=== PATIENT | male | born 1945 | race Caucasian/White ===

== ENCOUNTER 2016-10-21 05:16 | Inpatient (IN) | payer OTHER, BC ==
[2016-09-22 10:26] VITALS: BMI 23.0
--- NOTE | 2016-09-22 11:01 | PAT Medication Instructions ---
Service Date Sep 22, 2016. Current Home Medication List Aspirin (Aspirin Ec), 81 MG PO QAM Atorvastatin (Lipitor), 20 MG PO HS Chlorthalidone (Hygroton), 25 MG PO QAM Cholecalciferol (Vitamin D3), 1 TAB PO QAM Lisinopril (Zestril), 40 MG PO QAM Metformin Hcl (Glucophage), 500 MG PO BID Medication Instructions For Your Scheduled Surgery - Hold the following medications 48 hours prior to surgery: Metformin Hcl (Glucophage), 500 MG PO BID - Hold the following medications the morning of surgery: Chlorthalidone (Hygroton), 25 MG PO QAM Lisinopril (Zestril), 40 MG PO QAM Cholecalciferol (Vitamin D3), 1 TAB PO QAM - Take the following medications the morning of surgery with a sip of water: Aspirin (Aspirin Ec), 81 MG PO QAM - Take the following medications as scheduled the night before surgery: Atorvastatin (Lipitor), 20 MG PO HS If you have any questions please call us at [phone] or [phone] ( [facility]aceli) or [phone]
--- NOTE | 2016-09-22 11:34 | DIAGNOSTIC IMAGING REPORT ---
CHEST PREADMISSION(PA/LAT) CLINICAL HISTORY: PAT COMPARISON STUDY: No previous studies for comparison. FINDINGS: The bones soft tissues and hemidiaphragms are normal. The cardiomediastinal silhouette is normal. The lungs are clear. The pulmonary vasculature is normal. IMPRESSION: Negative chest. Electronically signed by: Jj Toledo M.D. 09/22/2016 11:32 AM
[2016-09-22 12:01] LABS: BASO % 0.5 %; BASO ABS # 0.03 K/uL (0-0.2); COMPLETE YES; HEMATOCRIT 36.7 % (42-52); IG% 0.3 %; LYMPH ABS # 1.18 K/uL (1.2-3.4); MEAN CELL VOLUME 90.6 fL (80-100); MEAN CORPUSCULAR HEMOGLOBIN 31.4 pg (25-34); MEAN CORPUSCULAR HGB CONC 34.6 g/dl (32-36); MEAN PLATELET VOLUME 9.9 fL (7.4-10.4); MONO % 4.4 %; NEUT % 72.8 %; PLATELET COUNT 170 K/uL (130-400); RED BLOOD COUNT 4.05 M/uL (4.7-6.1); WHITE BLOOD COUNT 6.54 K/uL (4.8-10.8)
[2016-09-22 12:09] LABS: URINE APPEARANCE CLEAR (CLEAR); URINE BILIRUBIN NEG (NEG); URINE COLOR YELLOW; URINE EPITHELIAL CELL AUTO 0-5 /lpf (0-5); URINE NITRITE NEG (NEG); URINE PH 6.5 (4.5-7.5); UROBILINOGEN NEG (NEG)
[2016-09-22 12:10] LABS: PROTHROMBIN TIME (PATIENT) 11.1 SECONDS (9.0-12.0)
[2016-09-22 12:13] LABS: MANUAL MICROSCOPIC REQUIRED? NO; REVIEW REQ? NO
[2016-09-22 12:29] LABS: BUN/CREATININE RATIO 24.5 (10-20); CALCIUM 9.7 mg/dl (8.5-10.1); CREATININE 1.3 mg/dl (0.60-1.40); POTASSIUM 4.6 mmol/L (3.5-5.1)
[2016-09-22 12:44] LABS: ESTIMATED AVERAGE GLUCOSE 146 mg/dl; HA1C FLAG Normal (Normal)
--- NOTE | 2016-10-20 09:16 | HISTORY & PHYSICAL EXAMINATION ---
DATE OF ADMISSION: 10/21/2016 CHIEF COMPLAINT: Right knee pain. HISTORY OF PRESENT ILLNESS: The patient is a 71-year-old gentleman with known osteoarthritis about his right knee. He has had a previous corticosteroid injection with minimal relief. He continues to have pain and disability with activities of daily living. He has pain with prolonged weightbearing and standing activities. He has difficulty with any kneeling, bending, or squatting activities. He now desires to proceed with right total knee arthroplasty. PAST MEDICAL HISTORY: Type 2 diabetes, anemia, stage III chronic kidney disease, BPH, diabetic neuropathy, hyperlipidemia, hypertension. PAST SURGICAL HISTORY: Cataract surgery, cholecystectomy, hemorrhoidectomy, knee arthroscopy. MEDICATIONS: Chlorthalidone 25 mg daily, lisinopril 40 mg daily, Atorvastatin calcium 20 mg at bedtime, aspirin 81 mg daily, Voltaren gel as needed, metformin HCL ER 500 mg twice daily. ALLERGIES: No known drug allergies. SOCIAL HISTORY AND REVIEW OF SYSTEMS: Noncontributory. PHYSICAL EXAMINATION: GENERAL: Well-nourished, well-developed elderly male who appears stated age. HEENT: Normocephalic, atraumatic, extraocular movements intact, oropharynx pink and moist. NECK: Supple without adenopathy. LUNGS: Clear to auscultation bilaterally. HEART: Regular rate and rhythm. ABDOMEN: Soft, nontender, nondistended. EXTREMITIES: The upper extremity within normal limits. The right knee has a neutral alignment. He complains of both medial and lateral joint line pain. He has mild crepitus with range of motion. X-RAYS: X-rays were reviewed. He has moderate to severe tricompartmental DJD with equal narrowing of the medial and lateral joint lines. There is evidence of subchondral sclerosis. ASSESSMENT: Right knee degenerative joint disease. PLAN: Risks versus benefits were discussed. Consent was obtained. The patient's primary care physician is Dr. Soto. Will proceed with right total knee arthroplasty upon preoperative workup and medical clearance. KASSANDRA
[2016-10-21] VITALS (10 sets, daily range): BP systolic 120–159; BP diastolic 63–89; PULSE 58–81; TEMP 36.3–36.9; O2SAT 90–99; Ht 185.4 cm; Wt 81.9 kg
[~2016-10-21] VITALS: Ht 185.4 cm; Wt 81.9 kg
[~2016-10-21 05:16] MED LIST: ASPI81TA28 PO; ATOR-22 PO; CHOL20007 PO; GLC/500 PO; HYG/25 PO; LISI-794 PO
[2016-10-21] MEDS ORDERED: GABAPENTIN 300 MG CAP PO SCH (06:00)
[2016-10-21] MEDS ORDERED: CEFAZOLIN 2000 MG/60 ML D5W 60 ML IV SCH (06:00)
[2016-10-21] MEDS ORDERED: DEXAMETHASONE 4 MG TAB PO SCH (06:00)
[2016-10-21] MEDS ORDERED: ACETAMINOPHEN 500 MG TAB PO SCH (06:00)
[2016-10-21] MEDS ORDERED: LACTATED RINGER'S 1000ML IV SCH (06:00)
[2016-10-21] MEDS ORDERED: LACTATED RINGER'S 1000ML 1,000 ML IV SCH (06:00)
[2016-10-21] MEDS ORDERED: CeleBREX 200 MG CAP PO SCH (06:00)
[2016-10-21] MEDS ORDERED: METOCLOPRAMIDE HCL 10 MG TAB PO SCH (06:00)
[2016-10-21] MEDS ORDERED: ROPIVACAINE 5MG/ML 30 ML 150 MG, BUPIVACAINE/EPINEPHR 0.5% MPF 30 ML, KETOROLAC TROMETH... INFIL SCH ×7 (06:00)
[2016-10-21] MEDS ORDERED: FAMOTIDINE 20 MG TAB PO SCH (06:00)
[2016-10-21] MEDS ORDERED: OXYCODONE HCL 10 MG TABCR (OXYCONTIN) PO SCH (06:00)
[2016-10-21] MEDS: TRANEXAMIC ACID INJ 1,000 MG in SODIUM CHLORIDE 0.9% 100ML 100 ML IV SCH ×2 (06:18→06:30)
[2016-10-21] MEDS ORDERED: FENTANYL CITRATE INJ 50 MCG/1 ML 2 ML VIAL ONE (06:30)
[2016-10-21] MEDS ORDERED: ONDANSETRON INJ 2 MG/ML 2 ML VIAL ONE (06:30)
[2016-10-21] MEDS ORDERED: LIDOCAINE HCL 2% 2 ML VIAL (20MG/ML) ONE (06:30)
[2016-10-21] MEDS ORDERED: DEXAMETHASONE SOD INJ 4 MG/ML VIAL ONE (06:30)
[2016-10-21] MEDS ORDERED: MIDAZOLAM HCL 1 MG/ML 2ML VIAL ONE ×2 (06:30→06:59)
[2016-10-21] MEDS ORDERED: BUPIVACAINE 0.5 % 5 MG/1 ML PF 10ML VIAL ONE (06:30)
[2016-10-21] MEDS ORDERED: PROPOFOL IV EMULSION 10 MG/ML 20 ML VIAL IV ONE (06:30)
[2016-10-21] MEDS ORDERED: ORTHO JOINT ANESTHETIC ONE (06:32)
--- NOTE | 2016-10-21 06:48 | History & Physical Bridge Note ---
H&P Re-Evaluation Bridge Note: I have examined the patient, reviewed the History & Physical and in the interval since the performance of the History & Physical I have noted the following changes of clinical significance: No changes noted
[2016-10-21] MEDS ORDERED: EpHEDrine SULFATE INJ 50 MG/ML AMP IV PRN (07:00)
[2016-10-21] MEDS ORDERED: FENTANYL CITRATE INJ 50 MCG/1 ML 2 ML VIAL IV PRN (07:00)
[2016-10-21] MEDS ORDERED: ONDANSETRON INJ 2 MG/ML 2 ML VIAL IV PRN ×2 (07:00→08:30)
[2016-10-21] MEDS ORDERED: ATROPINE SULFATE 0.1 MG/ML 5ML SYR IV PRN (07:00)
--- NOTE | 2016-10-21 07:42 | [facility] Post Operative Brief Note ---
Immediate Operative Summary Operative Date Oct 21, 2016. Pre-Operative Diagnosis Right Knee Degenerative Joint Disease Post-Operative Diagnosis Right Knee Degenerative Joint Disease Procedure(s) Performed Right Total Knee Arthroplasty Surgeon Dr. Winkler Tracing Lathe Set Up Operator Surgeon(s) ALEXANDRO Mcintyre Estimated Blood Loss 20 ml Findings severe OA Specimens A. Right Knee Bone and Tissue Disposition Recovery Room / PACU
[2016-10-21] MEDS ORDERED: BACITRACIN 50000 UNIT VIAL IR ONE (07:48)
[2016-10-21] MEDS ORDERED: POVIDONE-IODINE OP SOLN 30 ML BTL TOP ONE (07:48)
--- NOTE | 2016-10-21 07:52 | OPERATIVE REPORT ---
DATE OF OPERATION: 10/21/2016 PREOPERATIVE DIAGNOSIS: Osteoarthritis right knee. POSTOPERATIVE DIAGNOSIS: Osteoarthritis right knee. PROCEDURE: Right total knee arthroplasty. SURGEON: Dr. Winkler. CERTIFIED CREDIT COUNSELOR: David Farris PA-C. ANESTHESIA: Spinal. COMPLICATIONS: None. OPERATION AND FINDINGS: Following induction of spinal anesthesia, the patient's right leg was prepped and draped in the usual sterile manner. Limb was exsanguinated with an Esmarch bandage and tourniquet was inflated to 350 mmHg. A longitudinal incision was made anteriorly. Subcutaneous tissue was sharply dissected. Electrocautery was used for hemostasis. Prepatellar bursa was incised and median parapatellar incision was performed. Patella was everted and the knee was flexed. Fat pad was removed to aid in visualization and the anterior and posterior cruciate ligaments were removed. The medial face of the tibia was cleared of soft tissue first with a Bovie and a Marrufo elevator. This tissue was retracted posteriorly using a blunt Hohmann. A Chanel retractor was used to expose the synovium above on the anterior aspect of the femur and this was removed down to bone. The PSI guide was placed on the distal femur and two pins were placed anteriorly and kept in position and two additional pins were placed distally and removed. The distal femoral cutting block was placed in position and the distal femoral cut was used in the +0 setting. Next, the cutting block was removed and the size 5 block was placed in the distal end of the femur. Care was taken to ensure appropriate external rotation and feeler gauge was used to ensure no notching would occur. The femoral block was centered on the distal femur and in the medial and lateral direction and was fixed using two bone screws. The gold pins were then removed. The oscillating saw was used to create the bone cuts and the distal femoral cutting block was removed and the reciprocating saw was used to further trim the femoral cuts as well as a deep in the area for the trochlear groove. Next, posterior condyle remnants were removed. Following this, a meniscal clamp and knife were utilized to remove the anterior portion of both medial and lateral meniscus. The proximal tibia PSI guide was placed into position and the proximal tibial cutting guide was screwed into position. The extra medullary alignment guide was utilized to ensure appropriate alignment. The proximal tibia was cut and the proximal tibial cutting block was removed and this bone fragment was removed. The appropriate guide was used to perform the notch cut on the distal femur and a lamina glue spreader and a cochlear knife were utilized to finish both medial and lateral meniscectomies to remove any remnants of the posterior or anterior cruciate ligaments. Following this, the distal femoral component was impacted into position and blunt Gretta was used to sublux the tibia anteriorly. The proximal tibia was sized and a size 5 tibial tray was chosen as the size to be used. This was put into position and appropriate external rotation and a double check with extramedullary alignment guide was performed. The canal for the tibial stem was prepared first with a 17 mm drill and then the punch and a mallet and the trial tibial poly was placed. A size 11 was chosen the size to be used. It was brought to extension and the patella was prepared with the patellar reamer. A size 39 component was chosen the size to be used. The trial component was placed and knee was taken through a full range of motion and there was found to be no lateral subluxation of the tibia. No lateral release was required. The trials were all removed. The final components were obtained and assembled. Cement was mixed. The knee was thoroughly irrigated and the ortho mix was injected about the knee joint. The final components were cemented into position. After thoroughly suctioning and drying the bone ends, all excess cement was removed. The knee was held in extension while the cement hardened. The wound was irrigated and closed over a Hemovac drain. #1 Vicryl was used to close the extensor mechanism. Subcutaneous tissues closed using 0 Dexon. Skin was closed with willard. Sterile dressing of Adaptic, 4 x 4's, sterile Webril, and Neri was applied. The patient tolerated the procedure well. Recovery room stable. Due to the complex nature of the procedure, the entire surgery was performed with the operational assistance of David Farris PA-C. The assistant professor of sociology, under direct supervision, was involved in the actual performance of all aspects of the surgical procedure including hemostasis, tissue retraction and incision, instrument management, patient positioning, and wound closure. I attest to the content of the Intraoperative Record and any orders documented therein. Any exceptio ns are noted below.
[2016-10-21] MEDS ORDERED: OXYCODONE HCL IR 5 MG TAB (IMMEDIATE RELEASE) PO PRN (08:30)
[2016-10-21] MEDS ORDERED: ALUMINUM/MAGNESIUM/SIMETH (MAALOX MAX) 30 ML UDC PO PRN (08:30)
[2016-10-21] MEDS ORDERED: ZOLPIDEM TARTRATE 5 MG TAB PO PRN (08:30)
[2016-10-21] MEDS ORDERED: TAMSULOSIN HCL 0.4 MG CAP PO PRN (08:30)
[2016-10-21] MEDS ORDERED: MoRPHine SULFATE 2 MG/ML CARP IV PRN (08:30)
[2016-10-21] MEDS ORDERED: METOCLOPRAMIDE HCL INJ 5 MG/ML 2 ML VIAL IV PRN (08:30)
[2016-10-21] MEDS ORDERED: MAGNESIUM HYDROXIDE SUSP 30 ML UDC PO PRN (08:30)
[2016-10-21] MEDS ORDERED: PHARMACY GLYCEMIC MGMT CONSULT PRN (08:33)
--- NOTE | 2016-10-21 08:47 | DIAGNOSTIC IMAGING REPORT ---
TWO VIEWS RIGHT KNEE CLINICAL HISTORY: Postoperative examination. FINDINGS: AP and crosstable lateral portable views of the right knee are obtained. A right knee arthroplasty is in near anatomic alignment. There has been undersurface remodeling of the patella. No acute fracture is seen. There are expected postoperative changes around the knee including skin clips, a surgical drain, soft tissue edema, and subcutaneous gas. IMPRESSION: Expected postoperative changes status post right knee arthroplasty. No acute fracture is seen. Electronically signed by: Phillip Fung M.D. 10/21/2016 8:45 AM Dictated Date/Time: 10/21/2016 8:44 AM
[2016-10-21] MEDS ORDERED: MoRPHine SULFATE 10 MG/ML CARP/VIAL IV PRN (09:45)
[2016-10-21] MEDS ORDERED: MoRPHine SULFATE 4 MG/ML 1 ML CARP\\VIAL IV PRN (09:45)
[2016-10-21] MEDS: SODIUM CHLORIDE 0.9% 1000ML 1,000 ML IV SCH ×2 (09:57→18:18)
[2016-10-21] MEDS ORDERED: DEXTROSE 50% 50 ML SYR IV PRN (10:00)
[2016-10-21] MEDS ORDERED: GLUCOSE 40% GEL 15 GM TUBE PO PRN (10:00)
[2016-10-21] MEDS ORDERED: GLUCOSE 10 TABS/TUBE PO PRN (10:00)
[2016-10-21] MEDS ORDERED: GLUCAGON FOR INJ 1 MG VIAL SQ PRN (10:00)
[2016-10-21] MEDS: KETOROLAC TROMETHAMINE 15 MG/ML VIAL IV. SCH ×3 (10:08→22:02)
[2016-10-21] MEDS: DOCUSATE SODIUM 100 MG CAP PO SCH ×2 (10:18→20:47)
[2016-10-21] MEDS: MULTIVITAMIN TAB PO SCH (10:18)
[2016-10-21] MEDS: PANTOprazole SOD 40 MG TAB PO SCH (10:19)
[2016-10-21] MEDS: CHLORTHALIDONE 25 MG TAB PO SCH (10:19)
[2016-10-21] MEDS: LISINOPRIL 40 MG TAB PO SCH (10:19)
--- NOTE | 2016-10-21 10:37 | Anesthesiology Progress Note ---
Anesthesia Post Op Note Date & Time Oct 21, 2016 at 10:37 Vital Signs Pain Intensity: 0 Vital Signs Past 12 Hours Date Time Temp Pulse Resp B/P Pulse Ox O2 Delivery O2 Flow Rate FiO2 10/21/16 10:03 36.4 67 16 134/71 97 2.0 10/21/16 09:35 36.5 66 12 131/70 97 Room Air 10/21/16 09:10 98 Nasal Cannula 2.0 10/21/16 09:03 36.3 69 18 120/65 98 Nasal Cannula 2.0 10/21/16 08:53 125/58 10/21/16 08:52 62 16 10/21/16 08:52 62 16 99 10/21/16 08:48 122/64 10/21/16 08:47 67 16 10/21/16 08:47 71 16 99 10/21/16 08:44 36.4 10/21/16 08:43 123/58 10/21/16 08:42 60 16 99 10/21/16 08:42 60 16 10/21/16 08:41 60 16 99 10/21/16 08:41 60 16 10/21/16 08:38 123/64 10/21/16 08:36 65 16 10/21/16 08:36 68 16 99 10/21/16 08:33 123/60 10/21/16 08:31 68 18 10/21/16 08:31 67 18 99 10/21/16 08:28 135/63 10/21/16 08:26 65 16 10/21/16 08:26 62 16 99 10/21/16 08:23 128/59 10/21/16 08:21 63 11 97 10/21/16 08:21 63 11 10/21/16 08:18 123/59 10/21/16 08:16 71 14 10/21/16 08:16 72 14 98 10/21/16 08:16 36.1 65 11 120/55 99 Nasal Cannula 2 10/21/16 05:40 36.9 81 18 159/89 Room Air 96 Notes Mental Status: alert / awake / arousable, participated in evaluation Pt Amnestic to Procedure: Yes Nausea / Vomiting: adequately controlled Pain: adequately controlled Airway Patency, RR, SpO2: stable & adequate BP & HR: stable & adequate Hydration State: stable & adequate Neuraxial Anesthesia: was administered, sensory block is resolving Anesthetic Complications: no major complications apparent
[2016-10-21] MEDS: FERROUS GLUCONATE 324 MG TAB PO SCH ×2 (13:10→18:17)
[2016-10-21] MEDS: INSULIN ASPART 100 UNITS/ML 3 ML PEN SC SCH ×3 (13:29→20:45)
[2016-10-21] MEDS: ACETAMINOPHEN 500 MG TAB PO SCH ×2 (13:40→22:02)
[2016-10-21] MEDS: CEFAZOLIN IV 2,000 MG in DEXTROSE 5% 50ML 50 ML IV SCH ×2 (13:41→20:49)
--- NOTE | 2016-10-21 14:36 | Pharmacy Progress Note ---
Glycemic Control Intl Consult Date of Service Oct 21, 2016. Scope Glycemic Pharmacist consulted by MARGOTH Ruiz on 10/21/16 for glycemic control and to write orders per [facility] inpatient glycemic control protocol. Objective Weight (Kilograms): 81.900 Accuchecks BSG (last 24hrs): Test 10/21/16 05:45 10/21/16 08:19 10/21/16 11:56 Bedside Glucose 141 mg/dl (70-99) 145 mg/dl (70-99) 318 mg/dl (70-99) HbA1c Item Value Date Time Hemoglobin A1c 6.7 % H 09/22/16 1107 Estimated Average Glucose 146 mg/dl 09/22/16 1107 Recent Pertinent Medications Outpatient Anti-diabetic Regimen: * Metformin 500mg PO BID * A1c = 6.7 % 09/22/16 Risk Factors for Insulin Resistance: * Steroids: DXM 8mg PO x1 dose pre-op this morning PLUS ortho mix w/ DXM, DXM 10mg IV x1 dose tomorrow morning. * Infection: Ancef libertad-op * IVF: NSS @ 100mL/hr * Recent Surgery: POD #0 s/p right TKA * Diet: Type 2 diabetic diet Assessment & Plan ASSESSMENT: * ADA & AACE recommend a goal blood sugar range 140-180 mg/dl for the majority of critically ill & non-critically ill patients. However, more stringent targets may be selected in individual cases. * Patient is a 71yo diabetic male admitted for R TKA and receiving a couple of doses of steroids perioperatively. * Recent A1c indicates that outpatient glycemic control may be slightly suboptimal. PLAN FOR INPATIENT GLYCEMIC CONTROL: * Holding outpatient oral diabetes medications * No basal insulin at this time, but will consider adding some if hyperglycemia persists after discontinuation of steroids. * Correctional Insulin with NOVOLOG per scale ACHS plus 0200 * Goal Range: Low 140 mg/dL - High 180 mg/dL * Correction Factor: 30 mg/dL/unit * Nutritional / Prandial insulin per carb ratio of 1 unit per 10 grams CHO consumed * Please note that the plan above was derived based on current level of insulin resistance and hospital stress. These recommendations are appropriate for inpatient admission only. Plan of care upon discharge will need to be reassessed to avoid potential outpatient hypo/hyperglycemia. Thank you.
[2016-10-21] MEDS: ASPIRIN 81 MG ECTAB PO SCH (20:47)
[2016-10-21] MEDS: ATORVASTATIN 20 MG TAB PO SCH (20:47)
[2016-10-21] MEDS: OXYCODONE HCL 10 MG TABCR (OXYCONTIN) PO SCH (20:48)
[2016-10-22] MEDS: INSULIN ASPART 100 UNITS/ML 3 ML PEN SC SCH ×5 (02:13→21:16)
[2016-10-22 03:40] VITALS: BP 140/68; PULSE 72; TEMP 36.7; O2SAT 95
[2016-10-22] MEDS: KETOROLAC TROMETHAMINE 15 MG/ML VIAL IV. SCH (04:03)
[2016-10-22] MEDS: SODIUM CHLORIDE 0.9% 1000ML 1,000 ML IV SCH (04:05)
[2016-10-22] MEDS: ACETAMINOPHEN 500 MG TAB PO SCH ×3 (06:08→21:13)
[2016-10-22 07:30] LABS: HEMATOCRIT 27.1 % (42-52); MEAN CELL VOLUME 89.1 fL (80-100); MEAN CORPUSCULAR HEMOGLOBIN 30.9 pg (25-34); MEAN CORPUSCULAR HGB CONC 34.7 g/dl (32-36); MEAN PLATELET VOLUME 10.1 fL (7.4-10.4); PLATELET COUNT 134 K/uL (130-400); RED BLOOD COUNT 3.04 M/uL (4.7-6.1); WHITE BLOOD COUNT 10.51 K/uL (4.8-10.8)
[2016-10-22] MEDS ORDERED: DEXAMETHASONE INJ 10 MG in SYRINGE 0 ML IV SCH (07:30)
--- NOTE | 2016-10-22 07:37 | Anesthesiology Progress Note ---
Anesthesia Post Op Note Date & Time Oct 22, 2016 at 07:37 Vital Signs Pain Intensity: 0.0 Vital Signs Past 12 Hours Date Time Temp Pulse Resp B/P Pulse Ox O2 Delivery O2 Flow Rate FiO2 10/22/16 03:40 36.7 72 16 140/68 95 Room Air 10/21/16 23:27 36.5 69 18 135/63 97 Room Air 10/21/16 20:22 36.7 70 18 138/64 95 Room Air 10/21/16 20:00 Room Air 97 Notes Mental Status: alert / awake / arousable, participated in evaluation Pt Amnestic to Procedure: Yes Nausea / Vomiting: adequately controlled Pain: adequately controlled Airway Patency, RR, SpO2: stable & adequate BP & HR: stable & adequate Hydration State: stable & adequate Neuraxial Anesthesia: was administered, sensory block resolved Anesthetic Complications: no major complications apparent
--- NOTE | 2016-10-22 07:51 | Orthopedic Progress Note ---
Orthopedic Progress Note Date of Service Oct 22, 2016. Subjective Post OP Day: 1 Reports: feeling well Objective N/V intact, dressing C/D/I (Hemovac in place), toes mobile Date Time Temp Pulse Resp B/P Pulse Ox O2 Delivery O2 Flow Rate FiO2 10/22/16 03:40 36.7 72 16 140/68 95 Room Air 10/21/16 23:27 36.5 69 18 135/63 97 Room Air 10/21/16 20:22 36.7 70 18 138/64 95 Room Air 10/21/16 20:00 Room Air 97 10/21/16 16:00 96 Nasal Cannula 2.0 10/21/16 15:44 36.8 58 18 148/70 90 Nasal Cannula 2.0 10/21/16 12:05 36.4 65 16 141/69 99 2.0 10/21/16 11:04 70 16 129/69 98 2.0 10/21/16 10:03 36.4 67 16 134/71 97 2.0 10/21/16 09:40 Room Air 10/21/16 09:35 36.5 66 12 131/70 97 Room Air 10/21/16 09:10 98 Nasal Cannula 2.0 10/21/16 09:03 36.3 69 18 120/65 98 Nasal Cannula 2.0 10/21/16 08:53 125/58 10/21/16 08:52 62 16 10/21/16 08:52 62 16 99 10/21/16 08:48 122/64 10/21/16 08:47 67 16 10/21/16 08:47 71 16 99 10/21/16 08:44 36.4 10/21/16 08:43 123/58 10/21/16 08:42 60 16 99 10/21/16 08:42 60 16 10/21/16 08:41 60 16 99 10/21/16 08:41 60 16 10/21/16 08:38 123/64 10/21/16 08:36 65 16 10/21/16 08:36 68 16 99 10/21/16 08:33 123/60 10/21/16 08:31 68 18 10/21/16 08:31 67 18 99 10/21/16 08:28 135/63 10/21/16 08:26 65 16 10/21/16 08:26 62 16 99 10/21/16 08:23 128/59 10/21/16 08:21 63 11 97 10/21/16 08:21 63 11 10/21/16 08:18 123/59 10/21/16 08:16 71 14 10/21/16 08:16 72 14 98 10/21/16 08:16 36.1 65 11 120/55 99 Nasal Cannula 2 Laboratory Results 24 Hours: Test 10/22/16 06:40 Hematocrit 27.1 % Hemoglobin 9.4 g/dL Assessment & Plan Assessment: 71 yo male stable POD #1 s/p right TKA Plan: 1. Med management 2. DVT prophylaxis- ASA, TEDs, SCDs 3. PT/OT 4. D/C planning- home w/ OPPT
--- NOTE | 2016-10-22 07:53 | Discharge Instructions ---
Discharge Instructions Admission Reason for Admission: Osteoarthritis, Right Knee Discharge Discharge Diagnosis / Problem: Right knee arthritis Discharge Goals Goal(s): Decrease discomfort, Improve function Activity Recommendations Activity Limitations: as noted below Weightbearing Status: Right weightbearing (as tolerated) . Instructions / Follow-Up Instructions / Follow-Up ACTIVITY RECOMMENDATIONS: SELF CARE INSTRUCTIONS AFTER TOTAL KNEE REPLACEMENT A. You may need to continue a physical therapy program after discharge from the hospital. There are several options available to you. Your doctor will assist you in selecting the best one for you. 1. An out-patient facility 2 to 3 times a week for therapy or home therapy. 2. Continue working on all exercises taught to you in the hospital. Your goals should be to increase bending of your knee to 90 degrees and beyond and to fully straighten your knee. B. You may progress at your own pace from walking with a walker or crutches to a cane; then to no assistive devices. C. Make walking a part of your daily routine. Be up as much as comfortable with rest periods throughout the day. Rest with leg elevation is very important. Use the ice wrap frequently for the first 3-4 weeks. D. There are no restrictions on activities. You may ride in a car, shop, participate in subsorter and all social activities. E. Wear the long elastic stockings (JAIRO hose) 20 hours a day for 2 weeks after surgery. They can be removed several times a day for laundering and for a bath. F. You may shower, no tub baths until cleared by your doctor. SPECIAL CARE INSTRUCTIONS: VERY IMPORTANT TO READ AND REVIEW A. There are a few signs you need to watch for after you are home. Call [facility] if you notice any of the followin. Increased severe knee pain. Some pain is expected especially when you exercise. 2. Increased swelling in your leg or knee; pain or swelling of the calf muscle in either lower leg. 3. Any fluid drainage from the incision. 4. Shortness of breath or chest pain. B. Please call [facility] at if you have any concerns or questions about your operation or recovery. The doctor or his nurse will return your call promptly. C. You must take antibiotics before dental work, bladder, bowel or other surgery. Your doctor will provide you with a permanent care to carry describing this precaution. IMPORTANT: * REMEMBER TO TAKE ASPIRIN, 81 MG, TWICE DAILY FOR 4 WEEKS UNLESS OTHERWISE DIRECTED. THIS IS YOUR BLOOD THINNER. * HIGH RISK PATIENTS MAY BE PRESCRIBED A STRONGER BLOOD THINNER. THIS WILL BE PROVIDED AT DISCHARGE. * CALL IF INCREASED PAIN, REDNESS, DRAINAGE OR FEVER GREATER THAT 101. * WEAR JAIRO HOSE 20 HOURS PER DAY FOR 2 WEEKS. Silverlon- This is a large adhesive bandage that contains silver ions. This helps your incision heal by fighting off bacteria and protecting it from the outside environment. You are permitted to shower with this dressing. This will remain on your incision for 7 days and then should be removed. Some visible blood or drainage through the dressing window is normal. If there is significant drainage or leaking noted before the 7 days notify your doctor's office immediately. Once removed, keep incision clean and dry. If there is any drainage or redness noted, please call your surgeon. FOLLOW UP VISIT: If appointment is not already scheduled: Please call [facility] to make a follow-up appointment for 2 weeks after your surgery at . Current Hospital Diet Patient's current hospital diet: Diabetes Type 2 Diet Discharge Diet Recommended Diet: Regular Diet Procedures Procedures Performed: Right Total Knee Arthroplasty Pending Studies Studies pending at discharge: no Laboratory Results Hemoglobin A1c Test 09/22/16 11:07 Range/Units Estimated Average Glucose 146 mg/dl Hemoglobin A1c 6.7 H 4.5-5.6 % Medical Emergencies . Who to Call and When: Medical Emergencies: If at any time you feel your situation is an emergency, please call 911 immediately. . Non-Emergent Contact Non-Emergency issues call your: Surgeon Call Non-Emergent contact if: temperature is above 101.5, your pain is not controlled, wound has increased drainage, wound has increased redness . "Provider Documentation" section prepared by David Farris PA-C. VTE Core Measure Inpt VTE Proph given/why not?: Other Anticoagulation (ASA 81mg bid), T.E.D. Stockings, SCD's
[2016-10-22 08:02] LABS: BUN/CREATININE RATIO 25.4 (10-20); CALCIUM 8.2 mg/dl (8.5-10.1); CREATININE 1.6 mg/dl (0.60-1.40); POTASSIUM 4.7 mmol/L (3.5-5.1)
[2016-10-22 08:16] VITALS: BP 134/65; PULSE 68; TEMP 36.6; O2SAT 97
[2016-10-22] MEDS: DOCUSATE SODIUM 100 MG CAP PO SCH ×2 (08:36→21:13)
[2016-10-22] MEDS: FERROUS GLUCONATE 324 MG TAB PO SCH ×3 (08:36→18:00)
[2016-10-22] MEDS: CHLORTHALIDONE 25 MG TAB PO SCH (08:37)
[2016-10-22] MEDS: ASPIRIN 81 MG ECTAB PO SCH ×2 (08:37→21:13)
[2016-10-22] MEDS: LISINOPRIL 40 MG TAB PO SCH (08:38)
[2016-10-22] MEDS: MULTIVITAMIN TAB PO SCH (08:38)
[2016-10-22] MEDS: PANTOprazole SOD 40 MG TAB PO SCH (08:38)
[2016-10-22] MEDS: OXYCODONE HCL 10 MG TABCR (OXYCONTIN) PO SCH ×2 (08:41→21:13)
[2016-10-22 11:16] VITALS: BP 152/70; PULSE 72; TEMP 36.5; O2SAT 96
[2016-10-22 15:51] VITALS: BP 153/69; PULSE 74; TEMP 37.1; O2SAT 96
[2016-10-22] MEDS ORDERED: CeleBREX 200 MG CAP PO SCH (21:00)
[2016-10-22] MEDS: ATORVASTATIN 20 MG TAB PO SCH (21:13)
[2016-10-22 22:59] VITALS: BP 140/62; PULSE 71; TEMP 36.7; O2SAT 96
[2016-10-23] MEDS: INSULIN ASPART 100 UNITS/ML 3 ML PEN SC SCH ×2 (02:00→08:00)
[2016-10-23] MEDS: ACETAMINOPHEN 500 MG TAB PO SCH (05:16)
[2016-10-23 06:58] VITALS: BP 163/66; PULSE 72; TEMP 36.7; O2SAT 95
[2016-10-23] MEDS: OXYCODONE HCL 10 MG TABCR (OXYCONTIN) PO SCH (08:48)
[2016-10-23] MEDS: PANTOprazole SOD 40 MG TAB PO SCH (08:48)
[2016-10-23] MEDS: MULTIVITAMIN TAB PO SCH (08:48)
[2016-10-23] MEDS: DOCUSATE SODIUM 100 MG CAP PO SCH (08:49)
[2016-10-23] MEDS: FERROUS GLUCONATE 324 MG TAB PO SCH (08:49)
[2016-10-23] MEDS: ASPIRIN 81 MG ECTAB PO SCH (08:49)
[2016-10-23] MEDS: LISINOPRIL 40 MG TAB PO SCH (08:49)
[2016-10-23] MEDS: CHLORTHALIDONE 25 MG TAB PO SCH (08:50)
--- NOTE | 2016-10-23 09:25 | Orthopedic Progress Note ---
Orthopedic Progress Note Date of Service Oct 23, 2016. Subjective Post OP Day: 2 Reports: feeling well Objective N/V intact, dressing C/D/I, toes mobile Date Time Temp Pulse Resp B/P Pulse Ox O2 Delivery O2 Flow Rate FiO2 10/23/16 08:01 Room Air 10/23/16 06:58 36.7 72 16 163/66 95 Room Air 10/23/16 00:00 Room Air 10/22/16 22:59 36.7 71 16 140/62 96 Room Air 10/22/16 15:51 37.1 74 18 153/69 96 Room Air 10/22/16 15:20 Room Air 10/22/16 11:16 36.5 72 16 152/70 96 Room Air Assessment & Plan Assessment: 71 yo male stable POD #2 s/p right TKA Plan: 1. Med management 2. DVT prophylaxis- ASA, TEDs, SCDs 3. PT/OT 4. D/C planning- home w/ OPPT
[2016-10-23] MEDS ORDERED: ONDA8TAB12 PO (09:29)
[2016-10-23] MEDS ORDERED: RXC5 PO (09:29)
[2016-10-23] MEDS ORDERED: ACET-1138 PO (09:29)
[2016-10-23] MEDS ORDERED: OXYSR10 PO (09:29)
[2016-10-23] MEDS ORDERED: ASPEC81 PO (09:29)
[2016-10-23 09:51] VITALS: BP 163/66; PULSE 72; TEMP 36.7; O2SAT 95
--- NOTE | 2016-11-03 14:31 | DISCHARGE SUMMARY ---
CHIEF COMPLAINT: Right knee pain. Please see complete history and physical examination. HOSPITAL COURSE: The patient underwent right total knee arthroplasty without complication. He tolerated the procedure well and was discharged to the recovery room in stable condition. His postoperative course was relatively uneventful. His postoperative pain was reasonably well controlled with a combination of spinal anesthesia, adductor canal block, intraoperative joint injection, IV, and oral pain medications. He was started on aspirin for DVT prophylaxis. He also utilized JAIRO stockings and SCDs for additional prophylaxis. His H\T\H was stable and did not require transfusion. His surgical drain was discontinued by postoperative day 2, surgical dressing will remain in place for approximately 7 days postoperative. He tolerated postoperative physical therapy reasonably well as he was ambulating and transferring appropriately. He was discharged home on postoperative day 2. He will continue his physical therapy as an outpatient. He will continue his aspirin for DVT prophylaxis and follow up in our office in approximately 10-14 days for his initial postop evaluation.
== END 2016-10-23 10:18 | disposition home health service (06) | DRG 470 ==
LOC: ENRESERVTM → ENRESERVDT → C.ACU 05:16 → C.MSW 06:35
PROC: 0SRC0J9 Replacement of Right Knee Joint with Synthetic Substitute, Cemented, Open Approach (ICD-10-PCS; principal; 2016-10-21 07:00)
DX: M17.11 Unilateral primary osteoarthritis, right knee (principal); E11.40 Type 2 diabetes mellitus with diabetic neuropathy, unspecified; E11.22 Type 2 diabetes mellitus with diabetic chronic kidney disease; I12.9 Hypertensive chronic kidney disease with stage 1 through stage 4 chronic kidney disease, or unspecified chronic kidney disease; N18.3 Chronic kidney disease, stage 3 (moderate); E78.5 Hyperlipidemia, unspecified; Z79.1 Long term (current) use of non-steroidal anti-inflammatories (NSAID); Z79.82 Long term (current) use of aspirin; Z79.84 Long term (current) use of oral hypoglycemic drugs; Z79.899 Other long term (current) drug therapy